=== PATIENT | male | born 1950 | race Caucasian/White ===

== ENCOUNTER 2023-05-12 14:18 | Observation (INO) | payer BC, OTHER ==
[2023-05-12] MEDS ORDERED: amLODIPine BESYLATE 5 MG TABLET (FP) ONE (15:55)
[2023-05-12] MEDS ORDERED: LISINOPRIL 20 MG TABLET ONE (15:55)
[2023-05-12] MEDS: LISINOPRIL 20 MG TABLET PO ONE (16:10)
[2023-05-12] MEDS: amLODIPine BESYLATE 5 MG TABLET (FP) PO ONE (16:10)
[2023-05-12 16:19] LABS: BASO % 0.7 % (0-2.0); EOS % 2.4 % (0-4.5); HEMOGLOBIN 16.2 GM/dL (11.7-16.9); LYMPH % 24.5 % (8-40); MCH 31.1 pg (25.7-33.7); MCHC 33.7 g/dl (32.0-35.9); MEAN CELL VOLUME 92.2 fl (80-96); MONO % 6.3 % (3.8-10.2); NEUT % 66.1 % (42.8-82.8); PLATELET COUNT 189 10^3/uL (134-434); WHITE BLOOD COUNT 12.9 K/mm3 (4.0-10.0)
[2023-05-12 16:28] LABS: INR 1.06 (0.83-1.09); PROTHROMBIN TIME (PATIENT) 12.3 SEC (9.7-13.0)
[2023-05-12 16:31] LABS: ACTIVATED PTT 32.2 SECONDS (25.2-36.5)
[2023-05-12 16:45] LABS: POTASSIUM 4.2 mmol/L (3.5-5.1)
[2023-05-12 16:47] LABS: ALBUMIN 3.6 g/dl (3.4-5.0); BLOOD UREA NITROGEN 26.3 mg/dL (7-18); CALCIUM 8.7 mg/dL (8.5-10.1)
[2023-05-12 16:50] LABS: CREATININE 1.3 mg/dL (0.55-1.3)
[2023-05-12 16:52] LABS: BILIRUBIN,TOTAL 0.7 mg/dL (0.2-1); TOT PROT 6.8 g/dl (6.4-8.2)
[2023-05-12 18:05] LABS: PH,URINE 5.5 (5.0-8.0); URINE APPEARANCE CLEAR; URINE BILIRUBIN NEGATIVE (NEGATIVE); URINE COLOR YELLOW; URINE GLUCOSE (UA) NEGATIVE (NEGATIVE); URINE KETONE NEGATIVE (NEGATIVE); URINE LEUK ESTERASE NEGATIVE (NEGATIVE); URINE NITRITE NEGATIVE (NEGATIVE); URINE PROTEIN NEGATIVE (NEGATIVE); URINE UROBILINOGEN 0.2 mg/dL (0.2-1.0)
[2023-05-12] MEDS: NEBIVOLOL 5 MG TABLET (FP) PO ONE (21:45)
[2023-05-12] MEDS: CHLORTHALIDONE 25 MG TABLET PO ONE (22:41)
[2023-05-12 22:48] LABS: N-TERMINAL BNP 339.5 pg/ml (5-125)
[2023-05-13 00:17] VITALS: RESP 17
[2023-05-13 06:51] VITALS: BP 167/67; PULSE 48; TEMP 98.1
[2023-05-13 07:43] LABS: BASO % 0.3 % (0-2.0); EOS % 3.5 % (0-4.5); HEMATOCRIT 44.9 % (35.4-49); HEMOGLOBIN 15.7 GM/dL (11.7-16.9); LYMPH % 24.1 % (8-40); MCHC 34.9 g/dl (32.0-35.9); MEAN CELL VOLUME 91.6 fl (80-96); MEAN PLT VOLUME 8.3 fl (7.5-11.1); MONO % 6.4 % (3.8-10.2); NEUT % 65.7 % (42.8-82.8); PLATELET COUNT 189 10^3/uL (134-434); RBC 4.91 M/mm3 (4.00-5.60); RDW 14.3 % (11.9-15.9); WHITE BLOOD COUNT 10.1 K/mm3 (4.0-10.0)
[2023-05-13 07:56] LABS: POTASSIUM 4.3 mmol/L (3.5-5.1)
[2023-05-13 08:03] LABS: BLOOD UREA NITROGEN 24.1 mg/dL (7-18); CALCIUM 8.3 mg/dL (8.5-10.1)
[2023-05-13 08:07] LABS: CREATININE 1.3 mg/dL (0.55-1.3)
[2023-05-13] MEDS: ASPIRIN COATED 81 MG TABLET.EC PO SCH (10:16)
[2023-05-13] MEDS: NEBIVOLOL 5 MG TABLET (FP) PO SCH (10:16)
[2023-05-13] MEDS: amLODIPine BESYLATE 5 MG TABLET (FP) PO SCH (10:16)
[2023-05-13] MEDS ORDERED: ATORVASTATIN CA 40 MG TABLET (FP) PO SCH (22:00)
== END 2023-05-13 14:57 | disposition home or self-care (01) ==
LOC: JER 14:18 → JERBED 20:57 → J7W 23:49
PROVIDERS: ADMIT Student in an Organized Health Care Education/Training Program; ATTEND Internal Medicine
DX: I16.0 Hypertensive urgency (principal); I25.10 Atherosclerotic heart disease of native coronary artery without angina pectoris; R73.03 Prediabetes; E78.5 Hyperlipidemia, unspecified; I11.0 Hypertensive heart disease with heart failure; Z95.5 Presence of coronary angioplasty implant and graft; R42 Dizziness and giddiness; R06.09 Other forms of dyspnea; Z88.0 Allergy status to penicillin; F17.200 Nicotine dependence, unspecified, uncomplicated
CPT/HCPCS: 36415; 71045-TC-FY; 80048; 80053; 80061; 81003; 83036; 83880; 84439; 84443; 84484; 85025; 85610; 85730; 87086; 93005; 93010; 99285-25; G0378

== ENCOUNTER 2023-07-20 17:44 | Inpatient (IN) | payer OTHER ==
[2023-07-20] MEDS: SODIUM CHLORIDE 0.9% 500 ML INFUS.BAG IV ONE (18:59)
[2023-07-20] MEDS: ACETAMINOPHEN 1000 MG/100 ML BAG IVPB ONE (19:00)
[2023-07-20] MEDS ORDERED: ACETAMINOPHEN INJECTION 100 ML IVPB ONE (19:10)
[2023-07-20 19:17] LABS: EPI CELLS 2 /uL (0-25.1); HYALINE CASTS 1 /uL (0-3.1); PH,URINE 5.5 (5.0-8.0); URINE APPEARANCE CLOUDY; URINE BACTERIA 68 /uL (0-1359); URINE BILIRUBIN NEGATIVE (NEGATIVE); URINE COLOR YELLOW; URINE GLUCOSE (UA) NEGATIVE (NEGATIVE); URINE KETONE NEGATIVE (NEGATIVE); URINE LEUK ESTERASE 2+ (NEGATIVE); URINE NITRITE NEGATIVE (NEGATIVE); URINE PROTEIN 1+ (NEGATIVE); URINE UROBILINOGEN 0.2 mg/dL (0.2-1.0); URINE WBC 639 /uL (0-25.8)
[2023-07-20 19:18] LABS: BASO % 0.1 % (0-2.0); EOS % 0.1 % (0-4.5); HEMATOCRIT 45.1 % (35.4-49); HEMOGLOBIN 15.3 GM/dL (11.7-16.9); LYMPH % 2.5 % (8-40); MCH 32.2 pg (25.7-33.7); MEAN CELL VOLUME 94.6 fl (80-96); MEAN PLT VOLUME 8.2 fl (7.5-11.1); MONO % 5.1 % (3.8-10.2); NEUT % 92.2 % (42.8-82.8); PLATELET COUNT 140 10^3/uL (134-434); RBC 4.77 M/mm3 (4.00-5.60); RDW 14.3 % (11.9-15.9); WHITE BLOOD COUNT 16.5 K/mm3 (4.0-10.0)
[2023-07-20 19:21] LABS: INR 1.3 (0.83-1.09); PROTHROMBIN TIME (PATIENT) 14.6 SEC (9.7-13.0)
[2023-07-20 19:23] LABS: VENOUS BASE EXCESS 0.3 mmol/L (-2-2); VENOUS O2 SATURATION 58.4 % (70-80); VENOUS PCO2 39.2 mmHg (38-52); VENOUS PH 7.417 (7.310-7.410)
[2023-07-20 19:24] LABS: ACTIVATED PTT 32.4 SECONDS (25.2-36.5)
[2023-07-20 19:30] LABS: POTASSIUM 3.7 mmol/L (3.5-5.1)
[2023-07-20 19:34] LABS: CALCIUM 8.3 mg/dL (8.5-10.1)
[2023-07-20 19:35] LABS: ALBUMIN 3.2 g/dl (3.4-5.0); BLOOD UREA NITROGEN 24.5 mg/dL (7-18); MAGNESIUM 1.9 mg/dL (1.8-2.4)
[2023-07-20 19:38] LABS: CREATININE 1.5 mg/dL (0.55-1.3)
[2023-07-20 19:39] LABS: TOT PROT 6.1 g/dl (6.4-8.2)
[2023-07-20 19:40] LABS: BILIRUBIN,TOTAL 0.8 mg/dL (0.2-1)
[2023-07-20] MEDS: MEROPENEM 2 GM in SODIUM CHLORIDE 100 ML IVPB ONE (19:40)
[2023-07-20 19:58] LABS: LACTIC ACID 2.4 mmol/L (0.4-2.0)
[2023-07-20 20:12] LABS: URINE RBC 561.6 /uL (0-23.9); YEAST FEW (NEGATIVE)
[2023-07-20] MEDS ORDERED: KETOROLAC TROMETHAMINE 15 MG/ML VIAL ONE (20:49)
[2023-07-20] MEDS: KETOROLAC TROMETHAMINE 15 MG/ML VIAL IVPUSH ONE (20:55)
[2023-07-21] MEDS ORDERED: MEROPENEM 1 GM VIAL (RESTRICTED TO ID) IVPB ONE ×2 (03:15→11:42)
[2023-07-21] MEDS: MEROPENEM 1 GM in DEXTROSE 5%-WATER 100 ML IVPB SCH ×2 (03:24→20:39)
[2023-07-21 06:22] LABS: HEMATOCRIT 42.7 % (35.4-49); HEMOGLOBIN 14.5 GM/dL (11.7-16.9); MEAN CELL VOLUME 94.1 fl (80-96); PLATELET COUNT 118 10^3/uL (134-434); RBC 4.54 M/mm3 (4.00-5.60); RDW 14.3 % (11.9-15.9); WHITE BLOOD COUNT 14.6 K/mm3 (4.0-10.0)
[2023-07-21 06:39] LABS: POTASSIUM 3.4 mmol/L (3.5-5.1)
[2023-07-21 06:41] LABS: BLOOD UREA NITROGEN 24.4 mg/dL (7-18); CALCIUM 7.7 mg/dL (8.5-10.1)
[2023-07-21 06:45] LABS: CREATININE 1.3 mg/dL (0.55-1.3)
[2023-07-21 09:28] LABS: ANISOCYTOSIS 0; MACROCYTOSIS 0
[2023-07-21] MEDS ORDERED: amLODIPine BESYLATE 5 MG TABLET (FP) ONE (11:41)
[2023-07-21] MEDS: NEBIVOLOL 5 MG TABLET (FP) PO SCH (11:43)
[2023-07-21] MEDS: amLODIPine BESYLATE 5 MG TABLET (FP) PO SCH (12:06)
[2023-07-21] MEDS ORDERED: MEROPENEM 500 MG VIAL (RESTRICTED TO ID) IVPB ONE (17:34)
[2023-07-21] MEDS ORDERED: ACETAMINOPHEN INJECTION 100 ML IVPB ONE (17:34)
[2023-07-21] MEDS ORDERED: ACETAMINOPHEN 325 MG TABLET (FP) ONE (17:36)
[2023-07-21] MEDS: MEROPENEM 500 MG in DEXTROSE 5%-WATER 100 ML IVPB SCH (17:54)
[2023-07-21] MEDS: ACETAMINOPHEN 325 MG TABLET (FP) PO PRN (17:55)
[2023-07-21 21:54] VITALS: BMI 29.4
[2023-07-21] MEDS: ATORVASTATIN CA 40 MG TABLET (FP) PO SCH (22:34)
[2023-07-22] MEDS: POTASSIUM CHLORIDE ORAL LIQUID 20 MEQ/15 ML PO ONE (09:50)
[2023-07-23 08:27] LABS: BASO % 0.3 % (0-2.0); EOS % 4.5 % (0-4.5); HEMATOCRIT 42.4 % (35.4-49); HEMOGLOBIN 14.9 GM/dL (11.7-16.9); LYMPH % 15.3 % (8-40); MCH 32.6 pg (25.7-33.7); MCHC 35.2 g/dl (32.0-35.9); MEAN CELL VOLUME 92.7 fl (80-96); MEAN PLT VOLUME 8.8 fl (7.5-11.1); MONO % 11.5 % (3.8-10.2); NEUT % 68.4 % (42.8-82.8); PLATELET COUNT 123 10^3/uL (134-434); RBC 4.57 M/mm3 (4.00-5.60); RDW 14.4 % (11.9-15.9); WHITE BLOOD COUNT 8.5 K/mm3 (4.0-10.0)
[2023-07-23 08:45] LABS: POTASSIUM 4.1 mmol/L (3.5-5.1)
[2023-07-23 08:55] LABS: ALBUMIN 2.6 g/dl (3.4-5.0); BLOOD UREA NITROGEN 19.6 mg/dL (7-18)
[2023-07-23 09:00] LABS: TOT PROT 5.4 g/dl (6.4-8.2)
[2023-07-23 09:03] LABS: BILIRUBIN,TOTAL 0.9 mg/dL (0.2-1)
[2023-07-24 08:10] LABS: POTASSIUM 4.1 mmol/L (3.5-5.1)
[2023-07-24 08:17] LABS: CALCIUM 8.2 mg/dL (8.5-10.1)
[2023-07-24 08:18] LABS: ALBUMIN 2.9 g/dl (3.4-5.0); BLOOD UREA NITROGEN 20.4 mg/dL (7-18)
[2023-07-24 08:21] LABS: CREATININE 1.1 mg/dL (0.55-1.3)
[2023-07-24 08:22] LABS: BILIRUBIN,TOTAL 1.2 mg/dL (0.2-1)
[2023-07-24 08:39] LABS: BASO % 0.3 % (0-2.0); EOS % 4.8 % (0-4.5); HEMATOCRIT 44.6 % (35.4-49); HEMOGLOBIN 15.8 GM/dL (11.7-16.9); LYMPH % 18.4 % (8-40); MCH 32.8 pg (25.7-33.7); MCHC 35.4 g/dl (32.0-35.9); MEAN CELL VOLUME 92.6 fl (80-96); MEAN PLT VOLUME 8.6 fl (7.5-11.1); NEUT % 67.5 % (42.8-82.8); PLATELET COUNT 183 10^3/uL (134-434); RBC 4.82 M/mm3 (4.00-5.60); RDW 13.9 % (11.9-15.9); WHITE BLOOD COUNT 10.1 K/mm3 (4.0-10.0)
[2023-07-24] MEDS: MEROPENEM 1 GM in DEXTROSE 5%-WATER 100 ML IVPB SCH (17:30)
[2023-07-24 22:58] VITALS: TEMP 98.2
[2023-07-25 06:19] VITALS: RESP 17
[2023-07-25 06:20] VITALS: BP 165/69; PULSE 53
[2023-07-25] MEDS: amLODIPine BESYLATE 5 MG TABLET (FP) PO ONE (06:54)
[2023-07-25 09:23] LABS: POTASSIUM 4.1 mmol/L (3.5-5.1)
[2023-07-25 09:35] LABS: ALBUMIN 3.1 g/dl (3.4-5.0); BLOOD UREA NITROGEN 21.6 mg/dL (7-18); CALCIUM 8.6 mg/dL (8.5-10.1)
[2023-07-25 09:39] LABS: CREATININE 1.1 mg/dL (0.55-1.3)
[2023-07-25 09:40] LABS: TOT PROT 6.5 g/dl (6.4-8.2)
[2023-07-26] MEDS ORDERED: amLODIPine BESYLATE 5 MG TABLET (FP) PO SCH (10:00)
== END 2023-07-25 13:31 | disposition home or self-care (01) | DRG 862 ==
LOC: JER 17:44 → JERBED 07-21 00:03 → J8W 07-21 20:39
PROVIDERS: ADMIT Internal Medicine; ATTEND Internal Medicine
DX: T81.44XA Sepsis following a procedure, initial encounter (principal); A41.9 Sepsis, unspecified organism; N39.0 Urinary tract infection, site not specified; T83.518A Infection and inflammatory reaction due to other urinary catheter, initial encounter; N17.9 Acute kidney failure, unspecified; I10 Essential (primary) hypertension; I25.10 Atherosclerotic heart disease of native coronary artery without angina pectoris; E78.5 Hyperlipidemia, unspecified; N40.0 Benign prostatic hyperplasia without lower urinary tract symptoms; F17.200 Nicotine dependence, unspecified, uncomplicated; I16.0 Hypertensive urgency; D69.6 Thrombocytopenia, unspecified; Y84.6 Urinary catheterization as the cause of abnormal reaction of the patient, or of later complication, without mention of misadventure at the time of the procedure
CPT/HCPCS: 0241U-QW; 36415; 71045-TC-FY; 74177-TC; 80048; 80053; 81003; 82803; 83605; 83690; 83735; 85025; 85610; 85730; 86850; 86900; 86901; 87040; 87086; 87186; 93005; 93010; 99285-25; J0131; Q9967

== ENCOUNTER 2024-04-03 09:40 | Observation (INO) | payer OTHER ==
[2024-04-03 12:02] LABS: BASO % 0.3 % (0-2.0); EOS % 3.6 % (0-4.5); HEMATOCRIT 38.1 % (35.4-49); HEMOGLOBIN 12.8 GM/dL (11.7-16.9); LYMPH % 18.9 % (8-40); MCH 31.7 pg (25.7-33.7); MCHC 33.5 g/dl (32.0-35.9); MEAN CELL VOLUME 94.6 fl (80-96); MEAN PLT VOLUME 7.7 fl (7.5-11.1); MONO % 8.6 % (3.8-10.2); NEUT % 68.6 % (42.8-82.8); PLATELET COUNT 218 10^3/uL (134-434); RBC 4.03 M/mm3 (4.00-5.60); RDW 18.8 % (11.9-15.9); WHITE BLOOD COUNT 8.6 K/mm3 (4.0-10.0)
[2024-04-03 12:08] LABS: INR 1.53 (0.83-1.09); PROTHROMBIN TIME (PATIENT) 16.8 SEC (9.7-13.0)
[2024-04-03 12:10] LABS: ACTIVATED PTT 33.6 SECONDS (25.2-36.5)
[2024-04-03 12:23] LABS: POTASSIUM 4.3 mmol/L (3.5-5.1)
[2024-04-03 12:25] LABS: CALCIUM 8.8 mg/dL (8.5-10.1)
[2024-04-03 12:26] LABS: BLOOD UREA NITROGEN 36.2 mg/dL (7-18)
[2024-04-03 12:29] LABS: CREATININE 1.4 mg/dL (0.55-1.3)
[2024-04-03 12:30] LABS: BILIRUBIN,TOTAL 0.6 mg/dL (0.2-1); TOT PROT 6.3 g/dl (6.4-8.2)
[2024-04-03] MEDS ORDERED: LISINOPRIL 5 MG TABLET ONE (17:33)
[2024-04-03] MEDS: NEBIVOLOL 2.5 MG TABLET (FP) PO SCH (18:53)
[2024-04-03] MEDS: LISINOPRIL 5 MG TABLET PO SCH (18:53)
[2024-04-03 22:29] VITALS: BMI 30.6
[2024-04-04] MEDS ORDERED: PROPOFOL 20 ML ONE (19:44)
[2024-04-04] MEDS ORDERED: MIDAZOLAM HCL 2 MG/2 ML SINGLE DOSE VIAL ONE (19:44)
[2024-04-04] MEDS: ceFAZolin SODIUM 1 GM VIAL IVPB ONE (19:51)
[2024-04-04] MEDS ORDERED: ceFAZolin SODIUM 1 GM VIAL ONE ×2 (19:52)
[2024-04-04] MEDS: LACTATED RINGERS SOLUTION 1,000 ML IV SCH (20:32)
[2024-04-04] MEDS: APIXABAN 5 MG TABLET PO SCH (20:50)
[2024-04-04] MEDS ORDERED: ONDANSETRON 4 MG/2 ML VIAL IVPUSH PRN (21:00)
[2024-04-05 09:24] LABS: BASO % 0.1 % (0-2.0); EOS % 0.1 % (0-4.5); HEMATOCRIT 37.8 % (35.4-49); HEMOGLOBIN 12.5 GM/dL (11.7-16.9); LYMPH % 11.3 % (8-40); MCH 31.6 pg (25.7-33.7); MEAN CELL VOLUME 95.8 fl (80-96); MEAN PLT VOLUME 7.9 fl (7.5-11.1); MONO % 4.2 % (3.8-10.2); NEUT % 84.3 % (42.8-82.8); PLATELET COUNT 222 10^3/uL (134-434); RBC 3.94 M/mm3 (4.00-5.60); RDW 18.2 % (11.9-15.9); WHITE BLOOD COUNT 9.1 K/mm3 (4.0-10.0)
[2024-04-05 09:40] LABS: POTASSIUM 4.2 mmol/L (3.5-5.1)
[2024-04-05 10:06] LABS: CALCIUM 8.8 mg/dL (8.5-10.1)
[2024-04-05 10:09] LABS: BILIRUBIN,TOTAL 0.8 mg/dL (0.2-1); TOT PROT 6.1 g/dl (6.4-8.2)
[2024-04-05 10:10] LABS: CREATININE 1.3 mg/dL (0.55-1.3)
[2024-04-05] MEDS: LISINOPRIL 5 MG TABLET PO SCH (11:16)
[2024-04-05] MEDS: NEBIVOLOL 2.5 MG TABLET (FP) PO SCH (11:16)
[2024-04-05] MEDS: ASPIRIN 81 MG CHEWABLE TABLETS PO SCH (15:42)
[2024-04-06 09:25] LABS: CHOLESTEROL 151 mg/dL (50-200)
[2024-04-06 09:26] LABS: LDL CHOLESTEROL (ONLY SJRH) 93 mg/dL (5-100)
[2024-04-06 09:28] LABS: HDL CHOLESTEROL 38 mg/dL (40-60)
[2024-04-06 14:54] VITALS: BP 143/60; PULSE 62; RESP 18; TEMP 98.1
[2024-04-06] MEDS ORDERED: ATORVASTATIN CA 40 MG TABLET (FP) PO SCH (22:00)
== END 2024-04-06 15:26 | disposition home or self-care (01) ==
LOC: JER 09:40 → JERBED 12:31 → J8W 20:44
PROVIDERS: ADMIT Internal Medicine; ATTEND Internal Medicine
PROC: 0JBN0ZZ Excision of Right Lower Leg Subcutaneous Tissue and Fascia, Open Approach (ICD-10-PCS; principal; 2024-04-03)
PROC: 3E03329 Introduction of Other Anti-infective into Peripheral Vein, Percutaneous Approach (ICD-10-PCS; 2024-04-03)
DX: S81.801D Unspecified open wound, right lower leg, subsequent encounter (principal); X58.XXXD Exposure to other specified factors, subsequent encounter; E78.5 Hyperlipidemia, unspecified; Z88.0 Allergy status to penicillin; I25.10 Atherosclerotic heart disease of native coronary artery without angina pectoris; I73.9 Peripheral vascular disease, unspecified; R73.03 Prediabetes; Z79.01 Long term (current) use of anticoagulants
CPT/HCPCS: 0241U-QW; 11042; 36415; 80053; 80061; 83735; 85025; 85610; 85730; 86850; 86900; 86901; 93005; 93010; 94760; 96361; 96365; 99285-25; G0378